=== PATIENT | male | born 1980 | race African-American/Black ===

== ENCOUNTER 2021-08-24 12:37 | Emergency (ER) | payer OTHER ==
[~2021-08-24] VITALS: Ht 177.8 cm; Wt 80.0 kg
[2021-08-24] MEDS ORDERED: BACITRACIN ZINC OINT UDPKT TOP ONE (13:00)
[2021-08-24] MEDS ORDERED: TETANUS, DIPHTHERIA, PERTUSSIS VAC/PF 0.5ML (>10YR OLD) IM ONE (13:00)
[2021-08-24 13:54] VITALS: BP 121/80
== END 2021-08-24 13:55 ==
LOC: ER 12:37
DX: R45.851 Suicidal ideations (principal); S09.8XXA Other specified injuries of head, initial encounter; S60.512A Abrasion of left hand, initial encounter; F32.A Depression, unspecified; X83.8XXA Intentional self-harm by other specified means, initial encounter; Y93.89 Activity, other specified; Y92.018 Other place in single-family (private) house as the place of occurrence of the external cause
CPT/HCPCS: 90471; 90715; 99283